=== PATIENT | female | born 1980 | race Two or more races ===

== ENCOUNTER 2018-04-03 09:23 | Emergency (ER) | payer BC, OTHER ==
[2018-04-03 09:34] VITALS: BMI 37.1
[2018-04-03 10:36] LABS: BASO % 0.6 % (0-2.0); EOS % 0.9 % (0-4.5); HEMATOCRIT 38.5 % (32.4-45.2); HEMOGLOBIN 12.9 GM/dL (10.7-15.3); LYMPH % 36.4 % (8-40); MCH 30.3 pg (25.7-33.7); MCHC 33.6 g/dl (32.0-36.0); MEAN CELL VOLUME 90.2 fl (80-96); MEAN PLT VOLUME 9.4 fl (7.5-11.1); MONO % 5.9 % (3.8-10.2); NEUT % 56.2 % (42.8-82.8); PLATELET COUNT 215 K/MM3 (134-434); RBC 4.27 M/mm3 (3.60-5.2); RDW 13.4 % (11.6-15.6); WHITE BLOOD COUNT 6.6 K/mm3 (4.0-10.0)
--- NOTE | 2018-04-03 10:39 | PDOC ---
History of Present Illness - History of Present Illness Initial Comments: The patient is a 37 year old female who is 10 weeks , and presents to the ER for 3 days of vaginal bleeding and back pain. She states that she has been experiencing brown colored discharge for the past 2 days. She is also experiencing left lower abdominal and back pain. Her LMP was 01/16/18. Her first US for this is scheduled for April 14. She denies a history of miscarriages. She denies bright red vaginal bleeding. Denies dysuria, frequency , hematuria. 04/03/18 11:12 <Peg Kwan - Last Filed: 04/03/18 13:34> - General History Source: Patient Exam Limitations: No Limitations <Tasha Crowe - Last Filed: 04/03/18 14:12> - General Chief Complaint: Vaginal Bleeding Stated Complaint: BACK PAIN, BLEEDING (10 WKS ) Time Seen by Provider: 04/03/18 09:47 Past History <Peg Kwan - Last Filed: 04/03/18 13:34> - Past Medical History COPD: No DVT: No - Reproductive History Is Patient Now?: Yes (approx 10 weeks) (#): 3 Para: 2 Spontaneous : 0 - Immunization History Immunization Up to Date: Yes - Suicide/Smoking/Psychosocial Hx Smoking History: Never smoked Have you smoked in the past 12 months: No Information on smoking cessation initiated: No Hx Alcohol Use: No Drug/Substance Use Hx: No Substance Use Type: None <Tasha Crowe - Last Filed: 04/03/18 14:12> - Past Medical History Allergies/Adverse Reactions: Allergies Allergy/AdvReac Type Severity Reaction Status Date / Time No Known Allergies Allergy Verified 04/03/18 09:31 Home Medications: Ambulatory Orders Cephalexin [Keflex] 500 mg PO BID #10 capsule 04/03/18 No122/Iron/Folic Acid [ Multi Tablet] 1 each PO DAILY 04/03/18 Review of Systems - Review of Systems Comments:: GENERAL/CONSTITUTIONAL: No fever or chills. No weakness. HEAD, EYES, EARS, NOSE AND THROAT: No change in vision. No ear pain or discharge. No sore throat. CARDIOVASCULAR: No chest pain or shortness of breath. RESPIRATORY: No cough, wheezing, or hemoptysis. GASTROINTESTINAL: +lower abdominal pain. No nausea, vomiting, diarrhea or constipation. GENITOURINARY: No dysuria, frequency, or change in urination. GYNECOLOGICAL: +brown vaginal discharge MUSCULOSKELETAL: No joint or muscle swelling or pain. No neck pain. +back pain SKIN: No rash NEUROLOGIC: No headache, vertigo, loss of consciousness, or change in strength/ sensation. ENDOCRINE: No increased thirst. No abnormal weight change. HEMATOLOGIC/LYMPHATIC: No anemia, easy bleeding, or history of blood clots. ALLERGIC/IMMUNOLOGIC: No hives or skin allergy. 04/03/18 11:12 <Peg Kwan - Last Filed: 04/03/18 13:34> *Physical Exam - Vital Signs Last Vital Signs Temp Pulse Resp BP Pulse Ox 98.3 F 68 16 143/79 98 04/03/18 09:31 04/03/18 09:31 04/03/18 09:31 04/03/18 09:31 04/03/18 09:31 <Peg Kwan - Last Filed: 04/03/18 13:34> - Vital Signs Last Vital Signs Temp Pulse Resp BP Pulse Ox 98.3 F 68 16 143/79 98 04/03/18 09:31 04/03/18 09:31 04/03/18 09:31 04/03/18 09:31 04/03/18 09:31 - Physical Exam Female Pelvic Exam: positive: normal external exam, cervical os closed, discharge (brownish mucous in vault. nontender. os closed. ) <Tasha Crowe - Last Filed: 04/03/18 14:12> ED Treatment Course - LABORATORY CBC & Chemistry Diagram: 04/03/18 10:23 04/03/18 10:23 - ADDITIONAL ORDERS Additional order review: Laboratory Results 04/03/18 04/03/18 10:23 10:23 Sodium 142 Potassium 4.0 Chloride 110 H Carbon Dioxide 23 Anion Gap 9 BUN 10 Creatinine 0.5 L Creat Clearance w eGFR > 60 Random Glucose 99 Calcium 8.6 Total Bilirubin 0.2 AST 11 L ALT 11 L Alkaline Phosphatase 58 Total Protein 7.5 Albumin 3.8 Beta HCG, Quant 59640.2 Urine Color Yellow Urine Appearance Slcloudy Urine pH 5.0 Ur Specific [place] 1.018 Urine Protein Negative Urine Glucose (UA) Negative Urine Ketones Negative Urine Blood 1+ H Urine Nitrite Negative Urine Bilirubin Negative Urine Urobilinogen Negative Ur Leukocyte Esterase Trace Urine WBC (Auto) 11 Urine RBC (Auto) 2 Ur Epithelial Cells Moderate Urine Bacteria Many Urine Mucus Rare 04/03/18 10:23 RBC 4.27 MCV 90.2 MCHC 33.6 RDW 13.4 MPV 9.4 Neutrophils % 56.2 Lymphocytes % 36.4 Monocytes % 5.9 Eosinophils % 0.9 Basophils % 0.6 - Additional Consults Time Called: 13:35 (Waiting callback from Dr. Laisha Quiroz's service. ) <Peg Kwan - Last Filed: 04/03/18 13:34> - LABORATORY CBC & Chemistry Diagram: 04/03/18 10:23 04/03/18 10:23 <Tasha Crowe - Last Filed: 04/03/18 14:12> Medical Decision Making - Medical Decision Making 04/03/18 10:36 37-year-old female currently approximately 10 weeks by last menstrual period in December here today complaining of vaginal bleeding. Patient is having mild cramping sensation in the left lower quadrant suprapubic also noticing brown tinged mucousy discharge no bright red blood per vagina history is ectopics pregnancies previously uncomplicated has not had an ultrasound yet this but does have follow-up scheduled in a few weeks pain is moderate crampy On exam patient has mild suprapubic left lower quadrant tenderness no rebound no guarding Differential includes ectopic, threatened AB, incomplete AB plan ultrasound UA blood type and basic labs 04/03/18 11:25 focused ED transabdominal ultrasound , OB indication abd pain r/o ectopic pt uterus scanned in two planes gestational sac noted. sac diameter c/w 6 weeks and 2 days. yolk sac present. pole present. unable to visualize FHR, no free fluid, impression: IUP, recommend TVUS for FHR assessment. 04/03/18 13:28 pt tvus with 6 week 5 day gest sac, no pole visualized. yolk sac noted. will require followup to evaluate for normal vs. failed . 04/03/18 14:12 d/ us findings with nurse at laisha quiroz office will see her in offic in 3 days. <Tasha Crowe - Last Filed: 04/03/18 14:12> *DC/Admit/Observation/Transfer - Attestations Scribe Attestion: 04/03/18 11:15 Documentation prepared by Peg Kwan, acting as medical care manager for Tasha Crowe MD. <Peg Kwan - Last Filed: 04/03/18 13:34> - Discharge Dispostion Decision to Admit order: No <Tasha Crowe - Last Filed: 04/03/18 14:12> Diagnosis at time of Disposition: Threatened - Discharge Dispostion Disposition: HOME Condition at time of disposition: Good - Prescriptions Prescriptions: Cephalexin [Keflex] 500 mg PO BID #10 capsule - Referrals Referrals: Laisha Quiroz MD [Primary Care Provider] - - Patient Instructions Printed Discharge Instructions: Managing Symptoms of Additional Instructions: you should follow up with Laisha Quiroz as scheduled. you should return for any worsening pain, bleeding or any concerns. your gestational age by ultrasound today is 6 weeks 5 days. they are unable to see the pole. you will need a follow up ultrasound with in 3 - 5 days. Print Language: GHANAIAN
[2018-04-03 10:42] LABS: URINE APPEARANCE SLCLOUDY; URINE BILIRUBIN NEGATIVE (<2.0 mg/dL); URINE COLOR YELLOW; URINE GLUCOSE (UA) NEGATIVE (NEGATIVE); URINE KETONE NEGATIVE (NEGATIVE); URINE LEUK ESTERASE TRACE (NEGATIVE); URINE NITRITE NEGATIVE (NEGATIVE); URINE PROTEIN NEGATIVE (NEGATIVE); URINE UROBILINOGEN NEGATIVE mg/dL (0.2-1.0)
[2018-04-03 10:43] LABS: CHLORIDE 110 mmol/L (98-107); SODIUM 142 mmol/L (136-145)
[2018-04-03 10:50] LABS: ALBUMIN 3.8 g/dl (3.4-5.0); ANION GAP 9 (8-16); BILIRUBIN,TOTAL 0.2 mg/dL (0.2-1.0); BLOOD UREA NITROGEN 10 mg/dL (7-18); CALCIUM 8.6 mg/dL (8.5-10.1); CO2 23 mmol/L (21-32); CREATININE 0.5 mg/dL (0.55-1.02); GLUCOSE,RANDOM 99 mg/dL (74-106); SGOT/AST 11 U/L (15-37); SGPT/ALT 11 U/L (12-78)
[2018-04-03 10:56] LABS: EPI CELLS MODERATE /HPF (FEW); URINE BACTERIA MANY /hpf (NONE SEEN); URINE MUCUS RARE
[2018-04-03 11:06] LABS: ALK PHOS 58 U/L (45-117); TOT PROT 7.5 g/dl (6.4-8.2)
[2018-04-03] MEDS ORDERED: CEPHALEXIN MONOHYDRATE 500 MG CAPSULE (UD) PO ONE (13:48)
[2018-04-03] MEDS ORDERED: CEPHALEXIN MONOHYDRATE 500 MG CAPSULE (UD) ONE (13:54)
[2018-04-03 14:18] VITALS: BP 129/78; PULSE 81; TEMP 98.1
[2018-04-04 08:58] LABS: URIC ACID 3.7 mg/dL (2.6-7.2)
== END 2018-04-03 14:17 | disposition home or self-care (01) ==
LOC: JER 09:23
DX: O26.891 Other specified pregnancy related conditions, first trimester (principal); O20.0 Threatened abortion; Z3A.01 Less than 8 weeks gestation of pregnancy
CPT/HCPCS: 36415; 76817-TC; 80053; 81003; 81015; 84550; 84702; 85025; 86850; 86900; 86901; 99283-25

== ENCOUNTER 2023-11-26 14:47 | Emergency (ER) | payer BC ==
[2023-11-26 14:57] VITALS: RESP 18; TEMP 98; BMI 28.3
[2023-11-26] MEDS: ACETAMINOPHEN 500 MG TABLET (FP) PO ONE (16:48)
[2023-11-26 17:41] LABS: BASO % 0.8 % (0-2.0); HEMATOCRIT 39.6 % (32.4-45.2); HEMOGLOBIN 13.5 GM/dL (10.7-15.3); INR 1.09 (0.83-1.09); MCH 30.2 pg (25.7-33.7); MEAN CELL VOLUME 88.9 fl (80-96); MONO % 5.8 % (3.8-10.2); NEUT % 54.4 % (42.8-82.8); PLATELET COUNT 233 10^3/uL (134-434); PROTHROMBIN TIME (PATIENT) 12.6 SEC (9.7-13.0); RBC 4.45 M/mm3 (3.60-5.2); RDW 13.3 % (11.6-15.6); WHITE BLOOD COUNT 8.4 K/mm3 (4.0-10.0)
[2023-11-26 17:43] LABS: POTASSIUM 3.8 mmol/L (3.5-5.1)
[2023-11-26 17:44] LABS: ACTIVATED PTT 29.5 SECONDS (25.2-36.5)
[2023-11-26 17:45] LABS: CALCIUM 9.2 mg/dL (8.5-10.1)
[2023-11-26 17:46] LABS: ALBUMIN 4.2 g/dl (3.4-5.0); BLOOD UREA NITROGEN 9.2 mg/dL (7-18); MAGNESIUM 1.8 mg/dL (1.8-2.4)
[2023-11-26 17:49] LABS: CREATININE 0.6 mg/dL (0.55-1.3)
[2023-11-26 17:51] LABS: BILIRUBIN,TOTAL 0.4 mg/dL (0.2-1); TOT PROT 8.4 g/dl (6.4-8.2)
[2023-11-26] MEDS ORDERED: ACETAMINOPHEN INJECTION 100 ML IVPB ONE (17:57)
[2023-11-26] MEDS ORDERED: MAG HYDROX/AL HYDROX/SIMETH 30 ML UNIT-DOSE CUP ONE (17:57)
[2023-11-26] MEDS ORDERED: FAMOTIDINE 20 MG/50 ML IVPB 20 MG/50 ML MG IVPB ONE (17:58)
[2023-11-26] MEDS ORDERED: ONDANSETRON 4 MG/2 ML VIAL ONE (17:58)
[2023-11-26] MEDS: MAG HYDROX/AL HYDROX/SIMETH 30 ML UNIT-DOSE CUP PO ONE (18:00)
[2023-11-26] MEDS: ONDANSETRON 4 MG/2 ML VIAL IVPUSH ONE (18:00)
[2023-11-26] MEDS: ACETAMINOPHEN 1000 MG/100 ML BAG IVPB ONE (18:00)
[2023-11-26] MEDS: FAMOTIDINE 20 MG/50 ML IVPB 20 MG/50 ML MG IVPB ONE (18:36)
[2023-11-26 19:11] VITALS: BP 154/93; PULSE 70
[2023-11-26 19:20] LABS: URINE APPEARANCE CLEAR; URINE BILIRUBIN NEGATIVE (NEGATIVE); URINE COLOR YELLOW; URINE GLUCOSE (UA) NEGATIVE (NEGATIVE); URINE KETONE NEGATIVE (NEGATIVE); URINE LEUK ESTERASE NEGATIVE (NEGATIVE); URINE NITRITE NEGATIVE (NEGATIVE); URINE PROTEIN NEGATIVE (NEGATIVE); URINE UROBILINOGEN 0.2 mg/dL (0.2-1.0)
== END 2023-11-26 19:23 | disposition home or self-care (01) ==
LOC: JER 14:47
PROC: 3E033GC Introduction of Other Therapeutic Substance into Peripheral Vein, Percutaneous Approach (ICD-10-PCS; principal; 2023-11-26)
PROC: 3E033GC Introduction of Other Therapeutic Substance into Peripheral Vein, Percutaneous Approach (ICD-10-PCS; 2023-11-26)
PROC: 3E033NZ Introduction of Analgesics, Hypnotics, Sedatives into Peripheral Vein, Percutaneous Approach (ICD-10-PCS; 2023-11-26)
DX: R07.9 Chest pain, unspecified (principal); M54.2 Cervicalgia; M79.602 Pain in left arm; R68.84 Jaw pain; R11.0 Nausea; R00.2 Palpitations; R05.9 Cough, unspecified; Z20.822 Contact with and (suspected) exposure to COVID-19
CPT/HCPCS: 0241U-QW; 36415; 71045-TC-FY; 80053; 81003; 83735; 84484; 84703; 85025; 85610; 85730; 86850; 86900; 86901; 87086; 93005; 93010; 99285-25; J0131